=== PATIENT | male | born 1950 | race Caucasian/White ===

== ENCOUNTER 2018-02-25 17:47 | Observation (INO) | payer OTHER, BC ==
[~2018-02-25] VITALS: Ht 193 cm; Wt 89.6 kg
[2018-02-25] MEDS ORDERED: SODIUM CHLORIDE 0.9% 1000ML 1,000 ML IV STA ×2 (17:54→18:44)
[2018-02-25] MEDS ORDERED: OPTIRAY 320 IV PRN (18:00)
[2018-02-25] MEDS ORDERED: PATIENT'S ALLERGY INFO NEEDS ENTERED SCH (18:15)
[2018-02-25 18:18] LABS: BASO % 0.2 %; BASO ABS # 0.04 K/uL (0-0.2); EOS ABS # 0.16 K/uL (0-0.5); HEMATOCRIT 47.6 % (42-52); HEMOGLOBIN 16.5 g/dL (14.0-18.0); IG# 0.05 K/uL (0.00-0.02); LYMPH ABS # 3.11 K/uL (1.2-3.4); MEAN CORPUSCULAR HEMOGLOBIN 32.9 pg (25-34); MEAN CORPUSCULAR HGB CONC 34.7 g/dl (32-36); MEAN PLATELET VOLUME 10.2 fL (7.4-10.4); MONO % 3.1 %; MONO ABS # 0.51 K/uL (0.11-0.59); NEUT % 76.4 %; PLATELET COUNT 273 K/uL (130-400); RED CELL DISTRIBUTION WIDTH SD 44.4 fL (36.4-46.3); WHITE BLOOD COUNT 16.37 K/uL (4.8-10.8)
[2018-02-25 18:42] LABS: ALBUMIN 4.1 gm/dl (3.4-5.0); CALCIUM 9.2 mg/dl (8.5-10.1); CREATININE 1.51 mg/dl (0.60-1.40); POTASSIUM 3.3 mmol/L (3.5-5.1)
[2018-02-25] MEDS ORDERED: ACET-1256 PO (19:05)
[2018-02-25] MEDS ORDERED: CHOL1TAB42 PO (19:05)
[2018-02-25] MEDS ORDERED: LISI20TA3 PO (19:05)
[2018-02-25] MEDS ORDERED: VERA240T20 PO (19:05)
--- NOTE | 2018-02-25 19:24 | DIAGNOSTIC IMAGING REPORT ---
CT SCAN OF THE ABDOMEN AND PELVIS WITH IV CONTRAST CLINICAL HISTORY: Lower abdominal pain. Diarrhea. COMPARISON STUDY: No priors. TECHNIQUE: Following the IV administration of 110 cc of Optiray 320, CT scan of the abdomen and pelvis is performed from the lung bases to the proximal femora. Images are reviewed in the axial, sagittal, and coronal planes. IV contrast was administered without complication. A dose lowering technique was utilized adhering to the principles of ALARA. CT DOSE: 486.34 mGy.cm FINDINGS: Lung bases: The heart is normal in size and without pericardial effusion. The lung bases are clear. There is a small hiatal hernia. Liver: The contrast-enhanced liver is normal in size, contour, and attenuation. There is no intrahepatic biliary ductal dilatation. The hepatic veins and portal veins are patent. Gallbladder: Unremarkable. Spleen: Normal in size and attenuation. Pancreas: Unremarkable. Adrenal glands: Unremarkable. Kidneys: The contrast enhanced kidneys are normal in size and without hydronephrosis. The kidneys enhance symmetrically. A 2.0 cm exophytic cyst arises from the right kidney. Additional parapelvic cysts are seen bilaterally. No enhancing renal mass is seen. Abdominal vasculature: The abdominal aorta is normal in course and caliber noting mild atherosclerotic calcification. Bowel: There is mild wall thickening and hyperemia seen throughout the colon. Faint pericolonic stranding is observed. The appearance is consistent with a mild nonspecific pancolitis. Liquid stool is consistent with diarrheal illness. No bowel obstruction is seen. The appendix is well-visualized and normal. Peritoneum: There is no intraperitoneal free air or abdominal ascites. There is a small fat-containing umbilical hernia. Lymphadenopathy: None. Pelvic viscera: The bladder is decompressed and grossly unremarkable. The prostate gland is mildly enlarged and heterogeneous. Skeletal structures: There is mild lumbosacral spondylosis. No lytic or blastic lesions are seen. IMPRESSION: 1. Findings are consistent with a mild nonspecific pancolitis, likely on an infectious or inflammatory basis 2. Additional findings as above. Electronically signed by: Igor Perry M.D. 02/25/2018 7:23 PM Dictated Date/Time: 02/25/2018 7:17 PM
[2018-02-25 20:27] LABS: CREATININE 1.22 mg/dl (0.60-1.40); POTASSIUM 3.9 mmol/L (3.5-5.1)
--- NOTE | 2018-02-25 21:16 | History and Physical ---
History & Physical Date & Time of Service: Feb 25, 2018 at 21:13 Chief Complaint: Nausea,Vomit Primary Care Physician: No Doctor, Assigned History of Present Illness Source: patient, hospital records, other 67 y/o M Hx HTN, vitamin D deficiency. Pt had acute onset of abdominal pain, fever, nausea, vomiting and diarrhea. He had eaten some broiled fish at a restaurant in [place] a few hours before the onset of his symptoms. No one else who he was with had ordered the fish and he was the only one in his green party to become ill. The t is visiting from [place] for a . A CT abdomen/ pelvis was obtained in the ER revealing a mild pancolitis. Initial labs revealed mild MILI and an elevated lactic. The lactic acid did not correct following a litre of IVF, however, the pt had symptomatically improved. Past Medical/Surgical History 1) HTN 2) Vitamin D deficiency Surgical: Lumbar surgery Family History Hypertension Social History Retired assembler production line, does not smoke, drinks 2 beers/wk Smoking Status: Never Smoker Allergies Coded Allergies: No Known Allergies (Unverified , 02/25/18) Home Medications Scheduled Acetaminophen (Tylenol), 500 MG PO PRN Cholecalciferol (Vitamin D), 5,000 UNITS PO DAILY Lisinopril (Prinivil), 20 MG PO DAILY Verapamil Sust Rel (Calan Sr Ext Rel), 240 MG PO DAILY Review of Systems Constitutional: + fever, No chills, No sweats Eyes: No worsening of vision ENT: No hearing loss, No unusual epistaxis, No nasal symptoms Respiratory: No cough, No sputum, No wheezing Cardiovascular: No chest pain, No orthopnea, No PND Abdomen: + nausea, + diarrhea Musculoskeletal: No joint pain Genitourinary - Male: No hematuria, No dysuria Neurologic: No memory loss, No paralysis, No weakness Psychiatric: No depression symptoms Endocrine: No fatigue Hematologic / Lymphatic: No abnormal bleeding/bruising Integumentary: No rash Allergic / Immunologic: No environmental allergies Physical Exam Vital Signs Date Time Temp Pulse Resp B/P (MAP) Pulse Ox O2 Delivery O2 Flow Rate FiO2 02/25/18 20:00 76 18 140/69 97 Room Air 02/25/18 19:20 76 02/25/18 19:17 76 18 143/67 98 Room Air 02/25/18 17:51 37.0 65 16 135/79 98 Room Air General Appearance: WD/WN, no apparent distress Head: normocephalic Eyes: normal inspection ENT: normal ENT inspection, hearing grossly normal Neck: supple, no adenopathy Respiratory/Chest: chest non-tender, lungs clear, normal breath sounds Cardiovascular: regular rate, rhythm, no edema, no gallop Abdomen/GI: normal bowel sounds, non tender, soft Back: normal inspection, no CVA tenderness Extremities/Musculoskelatal: normal inspection, no calf tenderness, normal capillary refill Neurologic/Psych: assistant manager II-XII nml as tested, no motor/sensory deficits, alert, oriented x 3 Skin: normal color Diagnostics Laboratory Results Results Past 24 Hours Test 02/25/18 18:00 02/25/18 20:00 02/25/18 20:01 Range/Units White Blood Count 16.37 4.8-10.8 K/uL Red Blood Count 5.01 4.7-6.1 M/uL Hemoglobin 16.5 14.0-18.0 g/dL Hematocrit 47.6 42-52 % Mean Corpuscular Volume 95.0 80-100 fL Mean Corpuscular Hemoglobin 32.9 25-34 pg Mean Corpuscular Hemoglobin Concent 34.7 32-36 g/dl Platelet Count 273 130-400 K/uL Mean Platelet Volume 10.2 7.4-10.4 fL Neutrophils (%) (Auto) 76.4 % Lymphocytes (%) (Auto) 19.0 % Monocytes (%) (Auto) 3.1 % Eosinophils (%) (Auto) 1.0 % Basophils (%) (Auto) 0.2 % Neutrophils # (Auto) 12.50 1.4-6.5 K/uL Lymphocytes # (Auto) 3.11 1.2-3.4 K/uL Monocytes # (Auto) 0.51 0.11-0.59 K/uL Eosinophils # (Auto) 0.16 0-0.5 K/uL Basophils # (Auto) 0.04 0-0.2 K/uL RDW Standard Deviation 44.4 36.4-46.3 fL RDW Coefficient of Variation 13.0 11.5-14.5 % Immature Granulocyte % (Auto) 0.3 % Immature Granulocyte # (Auto) 0.05 0.00-0.02 K/uL Sodium Level 137 138 136-145 mmol/L Potassium Level 3.3 3.9 3.5-5.1 mmol/L Chloride Level 102 106 98-107 mmol/L Carbon Dioxide Level 20 22 21-32 mmol/L Anion Gap 15.0 9.0 3-11 mmol/L Blood Urea Nitrogen 22 22 7-18 mg/dl Creatinine 1.51 1.22 0.60-1.40 mg/dl Est Creatinine Clear Calc Drug Dose 56.7 70.1 ml/min Estimated GFR () 53.8 69.7 Estimated GFR (Non- 46.5 60.1 BUN/Creatinine Ratio 14.3 18.4 10-20 Random Glucose 185 123 70-99 mg/dl Calcium Level 9.2 8.0 8.5-10.1 mg/dl Total Bilirubin 1.0 0.2-1 mg/dl Direct Bilirubin 0.2 0-0.2 mg/dl Aspartate Amino Transf (AST/SGOT) 23 15-37 U/L Alanine Aminotransferase (ALT/SGPT) 25 12-78 U/L Alkaline Phosphatase 89 45-117 U/L Total Protein 8.0 6.4-8.2 gm/dl Albumin 4.1 3.4-5.0 gm/dl Lipase 158 73-393 U/L Urine Color DK YELLOW Urine Appearance CLEAR CLEAR Urine pH 5.0 4.5-7.5 Urine Specific [place] > 1.045 1.000-1.030 Urine Protein NEG NEG Urine Glucose (UA) NEG NEG Urine Ketones NEG NEG Urine Occult Blood NEG NEG Urine Nitrite NEG NEG Urine Bilirubin NEG NEG Urine Urobilinogen NEG NEG Urine Leukocyte Esterase NEG NEG Urine WBC (Auto) 1-5 0-5 /hpf Urine RBC (Auto) 0-4 0-4 /hpf Urine Hyaline Casts (Auto) 1-5 0-5 /lpf Urine Epithelial Cells (Auto) 10-20 0-5 /lpf Urine Bacteria (Auto) NEG NEG Lactic Acid Level 3.1 0.4-2.0 mmol/L Diagnostic Radiology CT abdomen: Findings are consistent with a mild nonspecific pancolitis, likely on an infectious or inflammatory basis Impression Assessment and Plan 67 y/o M Hx HTN, vitamin D deficiency. Pt had acute onset of abdominal pain, fever, nausea, vomiting and diarrhea. He had eaten some broiled fish at a restaurant in [place] a few hours before the onset of his symptoms. No one else who he was with had ordered the fish and he was the only one in his green party to become ill. The t is visiting from [place] for a . A CT abdomen/ pelvis was obtained in the ER revealing a mild pancolitis. Initial labs revealed mild MILI and an elevated lactic. The lactic acid did not correct following a litre of IVF, however, the pt had symptomatically improved. 1) Acute diarrheal illness - he will be observed due to lab abnormalities. Stool cultures are pending. We have not started antibiotics at present. IVF provided - repeat lactic is pending. MILI corrected following a litre of NS 2) HTN - cont Calan and Lisinopril Full code - SCDs Total time for this admit including review of labs, meds, imaging - discussion with pt and ER attending - 33 min Resuscitation Status VTE Prophylaxis Will order VTE Prophylaxis: Yes
[2018-02-25] MEDS ORDERED: ONDANSETRON INJ 2 MG/ML 2 ML VIAL IV PRN (21:45)
[2018-02-25] MEDS ORDERED: ACETAMINOPHEN 325 MG TAB PO PRN (21:45)
[2018-02-25] MEDS ORDERED: ALUMINUM/MAGNESIUM/SIMETH (MAALOX MAX) 30 ML UDC PO PRN (21:45)
[2018-02-25] MEDS ORDERED: POLYETHYLENE (MIRALAX) 17 GM PACK PO PRN (21:45)
[2018-02-25] MEDS ORDERED: ZOLPIDEM TARTRATE 5 MG TAB PO PRN (21:45)
[2018-02-25] MEDS ORDERED: MAGNESIUM HYDROXIDE SUSP 30 ML UDC PO PRN (21:45)
--- NOTE | 2018-02-25 22:01 | EMERGENCY ROOM VISIT NOTE ---
History Report prepared by Seamus: Baljeet Pelaez Under the Supervision of: Dr. Carlitos Martines D.O. First contact with patient: 17:49 Stated Complaint: NAUSEA,VOMIT History of Present Illness The patient is a 67 year old male who presents to the Emergency Room with complaints of constant lower abdominal pain that started at 1600, 2 hours ago. The patient notes that the pain is described as a "fullness and bloating" sensation. The patient stated he has not had a bowel movement in 4 days until today when he had a bowel movement along with emesis. He states that after the bowel movement the pain was partially relieved. The patient also states he felt weak and diaphoretic. He also notes that he received a colonoscopy two weeks ago and it was normal. Pt denies headache, change in vision, fevers, chest pain , shortness of breath, diarrhea, pain with urination, and melena. Source of History: patient Onset: 2 hours ago Position: abdomen (lower) Quality: other (Fullness and Bloating ) Timing: constant Modifying Factors (Relieving): defecation Associated Symptoms: + diaphoresis, + vomiting, + weakness, No headache, No melena, No diarrhea Review of Systems See HPI for pertinent positives & negatives. A total of 10 systems reviewed and were otherwise negative. Past Medical & Surgical Medical Problems: (1) Enteritis (2) HTN (hypertension) HTN (hypertension) Family History Hypertension Social History Alcohol Use: occasionally Marital Status: in relationship Housing Status: lives with significant other Occupation Status: unemployed Current/Historical Medications Scheduled Acetaminophen (Tylenol), 500 MG PO PRN Cholecalciferol (Vitamin D), 5,000 UNITS PO DAILY Lisinopril (Prinivil), 20 MG PO DAILY Verapamil Sust Rel (Calan Sr Ext Rel), 240 MG PO DAILY Allergies Coded Allergies: No Known Allergies (Unverified , 02/25/18) Physical Exam Vital Signs Date Time Temp Pulse Resp B/P (MAP) Pulse Ox O2 Delivery O2 Flow Rate FiO2 02/25/18 20:00 76 18 140/69 97 Room Air 02/25/18 19:20 76 02/25/18 19:17 76 18 143/67 98 Room Air 02/25/18 17:51 37.0 65 16 135/79 98 Room Air Physical Exam GENERAL: Sitting up in bed, alert, disheveled. EYE EXAM: normal conjunctiva. OROPHARYNX: no exudate, no erythema, lips, buccal mucosa, and tongue normal and mucous membranes are moist NECK: supple, no nuchal rigidity, no adenopathy, non-tender LUNGS: Clear to auscultation. Normal chest wall mechanics HEART: no murmurs, S1 normal and S2 normal ABDOMEN: abdomen soft, mildly diffusely tender, normo-active bowel sounds, no masses, no rebound or guarding. BACK: Back is symmetrical on inspection and there is no deformity, no midline tenderness, no CVA tenderness. SKIN: no rashes and no bruising UPPER EXTREMITIES: upper extremities are grossly normal. LOWER EXTREMITIES: No pitting edema. NEURO EXAM: Normal sensorium, cranial nerves II-XII grossly intact, normal speech, no gross weakness of arms, no gross weakness of legs. Medical Decision & Procedures ER Provider Diagnostic Interpretation: Radiology results as stated below per my review and the radiologist's interpretation: CT SCAN OF THE ABDOMEN AND PELVIS WITH IV CONTRAST CLINICAL HISTORY: Lower abdominal pain. Diarrhea. COMPARISON STUDY: No priors. TECHNIQUE: Following the IV administration of 110 cc of Optiray 320, CT scan of the abdomen and pelvis is performed from the lung bases to the proximal femora. Images are reviewed in the axial, sagittal, and coronal planes. IV contrast was administered without complication. A dose lowering technique was utilized adhering to the principles of ALARA. CT DOSE: 486.34 mGy.cm FINDINGS: Lung bases: The heart is normal in size and without pericardial effusion. The lung bases are clear. There is a small hiatal hernia. Liver: The contrast-enhanced liver is normal in size, contour, and attenuation. There is no intrahepatic biliary ductal dilatation. The hepatic veins and portal veins are patent. Gallbladder: Unremarkable. Spleen: Normal in size and attenuation. Pancreas: Unremarkable. Adrenal glands: Unremarkable. Kidneys: The contrast enhanced kidneys are normal in size and without hydronephrosis. The kidneys enhance symmetrically. A 2.0 cm exophytic cyst arises from the right kidney. Additional parapelvic cysts are seen bilaterally. No enhancing renal mass is seen. Abdominal vasculature: The abdominal aorta is normal in course and caliber noting mild atherosclerotic calcification. Bowel: There is mild wall thickening and hyperemia seen throughout the colon. Faint pericolonic stranding is observed. The appearance is consistent with a mild nonspecific pancolitis. Liquid stool is consistent with diarrheal illness. No bowel obstruction is seen. The appendix is well-visualized and normal. Peritoneum: There is no intraperitoneal free air or abdominal ascites. There is a small fat-containing umbilical hernia. Lymphadenopathy: None. Pelvic viscera: The bladder is decompressed and grossly unremarkable. The prostate gland is mildly enlarged and heterogeneous. Skeletal structures: There is mild lumbosacral spondylosis. No lytic or blastic lesions are seen. IMPRESSION: 1. Findings are consistent with a mild nonspecific pancolitis, likely on an infectious or inflammatory basis 2. Additional findings as above. Electronically signed by: Igor Perry M.D. 02/25/2018 7:23 PM Dictated Date/Time: 02/25/2018 7:17 PM Laboratory Results 02/25/18 18:00 Red Blood Count 5.01, Mean Corpuscular Volume 95.0, Mean Corpuscular Hemoglobin 32.9, Mean Corpuscular Hemoglobin Concent 34.7, Mean Platelet Volume 10.2, Neutrophils (%) (Auto) 76.4, Lymphocytes (%) (Auto) 19.0, Monocytes (%) (Auto) 3.1, Eosinophils (%) (Auto) 1.0, Basophils (%) (Auto) 0.2, Neutrophils # (Auto) 12.50, Lymphocytes # (Auto) 3.11, Monocytes # (Auto) 0.51, Eosinophils # (Auto) 0.16, Basophils # (Auto) 0.04 02/25/18 20:01 Test 02/25/18 18:00 02/25/18 20:00 02/25/18 20:01 02/25/18 21:36 White Blood Count 16.37 K/uL (4.8-10.8) Red Blood Count 5.01 M/uL (4.7-6.1) Hemoglobin 16.5 g/dL (14.0-18.0) Hematocrit 47.6 % (42-52) Mean Corpuscular Volume 95.0 fL (80-100) Mean Corpuscular Hemoglobin 32.9 pg (25-34) Mean Corpuscular Hemoglobin Concent 34.7 g/dl (32-36) Platelet Count 273 K/uL (130-400) Mean Platelet Volume 10.2 fL (7.4-10.4) Neutrophils (%) (Auto) 76.4 % Lymphocytes (%) (Auto) 19.0 % Monocytes (%) (Auto) 3.1 % Eosinophils (%) (Auto) 1.0 % Basophils (%) (Auto) 0.2 % Neutrophils # (Auto) 12.50 K/uL (1.4-6.5) Lymphocytes # (Auto) 3.11 K/uL (1.2-3.4) Monocytes # (Auto) 0.51 K/uL (0.11-0.59) Eosinophils # (Auto) 0.16 K/uL (0-0.5) Basophils # (Auto) 0.04 K/uL (0-0.2) RDW Standard Deviation 44.4 fL (36.4-46.3) RDW Coefficient of Variation 13.0 % (11.5-14.5) Immature Granulocyte % (Auto) 0.3 % Immature Granulocyte # (Auto) 0.05 K/uL (0.00-0.02) Total Bilirubin 1.0 mg/dl (0.2-1) Direct Bilirubin 0.2 mg/dl (0-0.2) Aspartate Amino Transf (AST/SGOT) 23 U/L (15-37) Alanine Aminotransferase (ALT/SGPT) 25 U/L (12-78) Alkaline Phosphatase 89 U/L (45-117) Total Protein 8.0 gm/dl (6.4-8.2) Albumin 4.1 gm/dl (3.4-5.0) Lipase 158 U/L (73-393) Urine Color DK YELLOW Urine Appearance CLEAR (CLEAR) Urine pH 5.0 (4.5-7.5) Urine Specific [place] > 1.045 (1.000-1.030) Urine Protein NEG (NEG) Urine Glucose (UA) NEG (NEG) Urine Ketones NEG (NEG) Urine Occult Blood NEG (NEG) Urine Nitrite NEG (NEG) Urine Bilirubin NEG (NEG) Urine Urobilinogen NEG (NEG) Urine Leukocyte Esterase NEG (NEG) Urine WBC (Auto) 1-5 /hpf (0-5) Urine RBC (Auto) 0-4 /hpf (0-4) Urine Hyaline Casts (Auto) 1-5 /lpf (0-5) Urine Epithelial Cells (Auto) 10-20 /lpf (0-5) Urine Bacteria (Auto) NEG (NEG) Anion Gap 9.0 mmol/L (3-11) Est Creatinine Clear Calc Drug Dose 70.1 ml/min Estimated GFR () 69.7 Estimated GFR (Non- 60.1 BUN/Creatinine Ratio 18.4 (10-20) Calcium Level 8.0 mg/dl (8.5-10.1) Laboratory results per my review. Medications Administered Medications (Trade) Dose Ordered Sig/Molly Route Start Time Stop Time Status Last Admin Dose Admin Sodium Chloride 1,000 ml @ 999 mls/hr Q1H1M STAT IV 02/25/18 17:54 02/25/18 18:54 DC 02/25/18 19:05 999 MLS/HR Miscellaneous Information (Patient'S Allergy Info Needs Entered) 1 ea Q30M N/A 02/25/18 18:15 02/25/18 18:40 DC 02/25/18 18:16 1 EA Sodium Chloride 1,000 ml @ 999 mls/hr Q1H1M STAT IV 02/25/18 18:44 02/25/18 19:44 DC 02/25/18 19:43 999 MLS/HR ED Course ED COURSE: Vital signs were reviewed and were normal. The patients medical record was reviewed The above diagnostic studies were performed and reviewed. ED treatments and interventions as stated above. 1749: The patient was evaluated in room B12B. A complete history and physical examination was performed. 2001: The patient had diarrhea at this time. 2058: I discussed the case with Dr. Vallecillo - [facility] [place] [facility]. He will evaluate for further evaluations. 2099: Upon reevaluation, the patient is resting in bed. I discussed my findings with the patient and he understands and agrees with the treatment plan. Based on the patients age, coexisting illnesses, exam and lab findings the decision to treat as an inpatient was made. The patient remained stable while under my care. The patient will be evaluated for further management. Medical Decision Differential diagnoses includes but is not limited to gastritis, peptic ulcer disease, GERD, gallbladder disease, pancreatitis, small bowel obstruction, acute coronary syndrome, pericarditis, ischemic bowel, irritable bowel disease, irritable bowel syndrome, appendicitis, diverticulitis, malignancy, hernia, urinary tract infection, torsion, perforation, trauma, infectious. Patient is a 67-year-old male who presents to ER for abdominal pain via EMS. Upon arrival he notes he had a large bowel movement as he was having significant pain in his pain improved significantly. He had not had a bowel movement for 4 days. Vitals are stable. Labs were obtained and showed a leukocytosis of 16,000. BMP with a creatinine of 1.5 along with a gap 15 and a CO2 of 20. Mild hypokalemia. LFTs bilirubin lipase is normal. Patient was given fluids and CT was performed and showed a diffuse pancolitis. He notes his symptoms were nearly completely resolved although he was having bouts of diarrhea. Did repeat a BMP along with a lactic acid. Lactic acid was 3.1 after already receiving fluids. BMP did normalize. UA was negative. Patient was afebrile and consequently did not give antibiotics. Patient was updated at bedside. This discussed with internal medicine secondary to the leukocytosis, andrews colitis and elevated lactate in regards to monitoring him overnight. Nothing to suggest acute ischemic colitis at this time. Patient was updated bedside and admitted to internal medicine. Medication Reconcilliation Current Medication List: was personally reviewed by me Blood Pressure Screening Patient's blood pressure: Normal blood pressure Consults Time Called: 2050 Consulting Physician: Dr. Ruth Ann SNYDER Hospitalist Returned Call: 2058 I discussed the case with Dr. Ruth Ann SNYDER Hospitalist. He will evaluate for further evaluations. Impression Primary Impression: Pancolitis Additional Impressions: Lactic acidosis Hypokalemia Scribe Attestation The scribe's documentation has been prepared under my direction and personally reviewed by me in its entirety. I confirm that the note above accurately reflects all work, treatment, procedures, and medical decision making performed by me. Departure Information Dispostion Being Evaluated By Hospitalist Referrals No Doctor, Assigned (PCP) Problem Qualifiers
[2018-02-25] MEDS ORDERED: IV FLUIDS COMPLETED PRN (22:15)
[2018-02-25 22:51] VITALS: BP 147/72; PULSE 78; TEMP 36.9; O2SAT 98; Ht 193 cm; Wt 89.6 kg
[2018-02-25] MEDS: D5NSS + 20MEQ KCL 1,000 ML IV SCH (23:15)
[2018-02-26] MEDS: D5NSS + 20MEQ KCL 1,000 ML IV SCH (05:56)
[2018-02-26 06:48] LABS: HEMATOCRIT 39.3 % (42-52); HEMOGLOBIN 13.1 g/dL (14.0-18.0); MEAN CELL VOLUME 95.2 fL (80-100); MEAN CORPUSCULAR HEMOGLOBIN 31.7 pg (25-34); MEAN CORPUSCULAR HGB CONC 33.3 g/dl (32-36); MEAN PLATELET VOLUME 9.6 fL (7.4-10.4); PLATELET COUNT 208 K/uL (130-400); RED CELL DISTRIBUTION WIDTH SD 45.2 fL (36.4-46.3); WHITE BLOOD COUNT 14.51 K/uL (4.8-10.8)
[2018-02-26 07:13] VITALS: BP 120/51; PULSE 67; TEMP 37.4; O2SAT 95
[2018-02-26 07:16] LABS: CALCIUM 7.6 mg/dl (8.5-10.1); CREATININE 1.01 mg/dl (0.60-1.40); POTASSIUM 4.2 mmol/L (3.5-5.1)
[2018-02-26] MEDS ORDERED: LISINOPRIL 20 MG TAB PO SCH (09:00)
[2018-02-26] MEDS ORDERED: VERAPAMIL HCL 240 MG TABCR PO SCH (09:00)
--- NOTE | 2018-02-26 13:14 | Discharge Summary ---
Discharge Summary Date of Service Feb 26, 2018. Discharge Summary Admission Date: Feb 25, 2018 at 21:36 Problems/Secondary Diagnoses: (1) HTN (hypertension) Status: Chronic Hospital Course This includes examination of the patient, discharge planning, medication reconciliation, and communication with other providers. Discharge Instructions Please refer to the electronic Patient Visit Report (Discharge Instructions) for additional information.
--- NOTE | 2018-02-26 13:16 | Discharge Instructions ---
Discharge Instructions Date of Service Feb 26, 2018. Admission Reason for Admission: Enteritis Discharge Discharge Diagnosis / Problem: Food poisoning Discharge Goals Goal(s): Decrease discomfort, Improve function Activity Recommendations Activity Limitations: resume your previous activity . Instructions / Follow-Up Instructions / Follow-Up Follow up with PCP in 1-2 weeks Clear liquid for 1 day. Advance to full liquid. Once able to tolerate, then can return to regular diet. Current Hospital Diet Patient's current hospital diet: Clear Liquid Diet Discharge Diet Recommended Diet: Clear Liquid Diet Pending Studies Studies pending at discharge: no Medical Emergencies . Who to Call and When: Medical Emergencies: If at any time you feel your situation is an emergency, please call 911 immediately. . Non-Emergent Contact Non-Emergency issues call your: Primary Care Provider Call Non-Emergent contact if: you have any medication questions . . "Provider Documentation" section prepared by Moises Camarena. .
[2018-02-26 13:27] VITALS: BP 120/51; PULSE 67; TEMP 37.4; O2SAT 95
== END 2018-02-26 14:00 | disposition home or self-care (01) ==
LOC: EDBD 17:47 → C.EDB 17:49 → C.MS2W 21:36 → ENRESERV 21:50
PROVIDERS: ADMIT Internal Medicine; ATTEND Internal Medicine
DX: T62.91XA Toxic effect of unspecified noxious substance eaten as food, accidental (unintentional), initial encounter (principal); E87.6 Hypokalemia; I10 Essential (primary) hypertension; E87.2 Acidosis; E55.9 Vitamin D deficiency, unspecified